=== PATIENT | female | born 1945 | race Caucasian/White ===

== ENCOUNTER → 2020-08-27 18:33 | Outpatient (CLI) | payer MEDICARE, OTHER | END | disposition home or self-care (01) | LOC: D.LABREF 18:33 | PROVIDERS: ATTEND Orthopaedic Surgery | DX: M17.12 Unilateral primary osteoarthritis, left knee (principal) ==

== ENCOUNTER 2020-11-06 05:12 | Inpatient (IN) | payer MEDICARE, OTHER ==
[2020-10-31 09:12] LABS: EOSINOPHILS 2.2 % (0-7); HEMATOCRIT 40.3 % (36.0-48.0); LYMPHOCYTES 24.7 % (15-50); MCH 24.6 pg (26.0-34.0); MCHC 32.3 g/dL (31.0-37.0); MCV 76.2 fL (80.0-100.0); MEAN PLATELET VOLUME 7.1 fL (7.4-10.4); MONOCYTES 10.6 % (2-11); NEUTROPHILS 61.5 % (40-80); PLATELET COUNT 294 10x3/uL (130-400); RBC 5.28 10x6/uL (4.00-5.40); WBC 4.6 10x3/uL (4.8-10.8)
[2020-10-31 09:22] LABS: INR 0.99 (0.85-1.17); PROTIME 12.1 SECONDS (11.6-15.0)
[2020-10-31 09:23] LABS: APTT 28.5 SECONDS (22.8-39.4)
[2020-10-31 09:24] LABS: CALC OSMOLALITY 278 mosm/kg (275-300); CHLORIDE - SERUM 104 mmol/L (98-107); CREATININE - SERUM 0.7 mg/dL (0.6-1.3); GLUCOSE 92 mg/dL (74-106); POTASSIUM - SERUM 3.7 mmol/L (3.5-5.1); SODIUM 141 mmol/L (136-145); UREA NITROGEN 8 mg/dL (7-18); eGFR NON AFRICAN AMERICAN 87 mL/min (90-120)
[2020-10-31 09:42] LABS: BILIRUBIN NEGATIVE (NEGATIVE); KETONE NEGATIVE mg/dL (< 1+); NITRITE NEGATIVE (NEGATIVE); PH 6.5 (5.0-8.0); SQUAMOUS EPITHELIAL <1 HPF (0-4); UROBILINOGEN NORMAL mg/dL (< 2); WHITE CELLS - URINE <1 HPF (0-4)
[~2020-11-06] VITALS: Ht 154.9 cm; Wt 58.2 kg
[~2020-11-06 05:12] MED LIST: ACETAMINOPHEN325 MG PO; COZAAR25 MG PO; FOLIC ACID0.8 MG PO; HYDROCODONE-AC1 EAC2 PO; NAPROXEN250 MG PO; PRENAVITE1 TAB PO; PROBIOTIC1 EAC1 PO; VITAMIN B-122500 MCG PO; VITAMIN D325 MC1 PO
[2020-11-06] MEDS ORDERED: VENTOLIN HFA [SP8 GM INH (06:13)
[2020-11-06 06:16] VITALS: BP 150/64; BMI 22.9
--- NOTE | 2020-11-06 07:37 | NUR ---
HIBACLENS AND ALCOHOL USED TO CLEAN BEFORE PREPPING. STERILE GOWNED AND GLOVED TO PREP WITH CHLORAPREP TIMES TWO. TRAFFIC KEPT TO A MINIMUM.
[2020-11-06 10:05] VITALS: BP 106/63
--- NOTE | 2020-11-06 10:06 | NUR ---
RECEIVED TO ROOM 2230 VIA BED FROM PACU. A/O X3. BP HIGH TEENS. WILL MONITOR. DRESSING TO LEFT KNEE DRY AND INTACT. DENIES NEEDS.
[2020-11-06 10:10] VITALS: BP 106/63; Ht 154.9 cm; Wt 58.2 kg
--- NOTE | 2020-11-06 11:00 | NUR ---
BP IS STEADY BUT LOW. WILL CONTINUE TO MONITOR.
--- NOTE | 2020-11-06 12:30 | NUR ---
BP IS 80/48. 500cc BOLUS INTIATED. SPOKE WITH DR. BARRERA RE SAME. WILL CONTINUE TO MONITOR.
--- NOTE | 2020-11-06 13:45 | NUR ---
LUNCH SERVED IN ROOM. BP IS UP IN THE HIGH TEENS SYSTOLIC. SITTING UP TO EAT SOME LUNCH. WILL CONTINUE TO MONITOR.
--- NOTE | 2020-11-06 16:20 | MORECARE ---
CASE MANAGEMENT DISCHARGE SUMMARY PATIENT: MAYA MARRERO UNIT: [id number] ADM DATE: 11/06/20 AGE: 75 : 46 SEX: F ROOM/BED: D.2230 AUTHOR: ANDRIA,DOC PHYSICIAN: REFERRING PHYSICIAN: JONAS BETH DO DATE OF SERVICE: 11/06/20 Case Management Discharge Planning Summary COMMENTS ENTERED DATE: 11/06/20 16:08 CT COMMENT TYPE: Discharge Planning REVIEWER: Jessie Bianchi CM met with patient at bedside after obtaining verbal consent. CM discussed availability / needs of home health, REHAB and medical equipment. Patient has CPM and walker by [employer]. Patient would also like a bedside commode. Patient plans to do out patient physical therapy and will tell me name of facility tomorrow. Barbosa served and copy on chart. CM to follow and assist as needed. DCP REVIEW SUMMARY ANTICIPATED D/C DATE: EXPECTED LOS : CASE STATUS: DCP Initiated INITIAL REVIEW: 11/06/2020 INITIAL REVIEWER: Jessie Bianchi FINAL DISCHARGE DISPOSITION: : FINAL REVIEWER: FINAL REVIEW DATE: DCP Focus Questions & Answers QUESTION: ANSWER : PATIENT: MAYA MARRERO ENCOUNTER: [id number] MEDICAL RECORD#: [id number] ADMISSION DATE: 11/06/2020 DISCHARGE DATE: ATTENDING MD: JONAS BRADY : AGE: 75 MARITAL STATUS: W DC PLAN ID: [id number] FACILITY: [facility] PRINTED ON: 11/06/20 16:20 CT All edits/amendments must be made on the electronic document DICTATION DATE: 11/06/201619 PHOTOGRAPH TINTER: DM 11/06/20 162 RPT#: [id number] DC DATE: STATUS: ADM IN [facility] [address] [place] [address] END OF REPORT
[2020-11-06 19:55] VITALS: BP 111/52
--- NOTE | 2020-11-06 21:00 | NUR ---
PT TAKEN OFF CPM AT THIS TIME. AMBULATED TO BATHROOM WITH WALKER WITH MINIMAL ASSIST. PT THEN AMBULATED TO SINK AND WASHED HANDS AND BRUSHED TEETH. PT THEN ASSISTED BACK TO BED. SCDS AND MICHELINE HOSE ON BILAT. APPLIED ICE PACK TO LEFT KNEE. PT STATES PAIN 7/10 AT THIS TIME. NORCO GIVEN FOR PAIN. DENIES OTHER NEEDS AT THIS TIME. CL IN REACH
--- NOTE | 2020-11-07 00:15 | NUR ---
PT STATES PAIN 8/10 AT THIS TIME. STATES HER LEG IS GETTING ACHY NOW SHE HAS BEEN LYING STILL A FEW HOUSE. PT ASSISTED TO BATHROOM AND BACK TO BED. GAVE DILAUDID ORDERED. ICE PACK APPLIED TO KNEE. DENIES OTHER NEEDS. CL IN REACH
[2020-11-07 00:16] VITALS: BP 112/61
[2020-11-07 05:37] VITALS: BP 106/52
[2020-11-07 07:18] LABS: BASOPHILS 0.2 % (0-2); EOSINOPHILS 0.4 % (0-7); HEMATOCRIT 31.3 % (36.0-48.0); LYMPHOCYTES 6.4 % (15-50); MCH 24.3 pg (26.0-34.0); MCHC 31.9 g/dL (31.0-37.0); MCV 76.2 fL (80.0-100.0); MEAN PLATELET VOLUME 7.3 fL (7.4-10.4); MONOCYTES 9.2 % (2-11); NEUTROPHILS 83.8 % (40-80); RBC 4.11 10x6/uL (4.00-5.40); RDW 15.5 % (11.5-14.5); WBC 7.3 10x3/uL (4.8-10.8)
[2020-11-07 07:37] LABS: PLATELET COUNT 226 10x3/uL (130-400)
[2020-11-07 07:40] LABS: ANION GAP 9.1 mmol/L (8-16); BILIRUBIN - TOTAL 0.32 mg/dL (0.2-1.3); CALCIUM 7.7 mg/dL (8.5-10.1); CARBON DIOXIDE 28.6 mmol/L (21.0-32.0); CREATININE - SERUM 0.8 mg/dL (0.6-1.3); POTASSIUM - SERUM 3.7 mmol/L (3.5-5.1); PROTEIN - SERUM 5.3 g/dL (6.4-8.2)
--- NOTE | 2020-11-07 08:02 | OP ---
PATIENT NAME: MAYA MARRERO MEDICAL RECORD: [id number] :47 LOCATION:D D.2230 ADMISSION DATE:11/06/20 SURGEON: ALAN BETH DO DATE OF OPERATION: 11/06/2020 PROCEDURE PERFORMED: Left total knee arthroplasty. PREOPERATIVE DIAGNOSIS: Left knee osteoarthritis. POSTOPERATIVE DIAGNOSIS: Left knee osteoarthritis. INDICATIONS: Ms. Marrero is a 75-year-old female who has had left knee pain for quite some time, had varus deformity. She has tried all manner of nonoperative treatment including injections. She has gotten to a point where it is affecting her activities of daily living, could not tolerate any longer and wanted something done surgically. She is aware of the risks including infection, bleeding, damage to nerves or vessels, need for further surgery, fracture, failure of implants, blood clots and even and she signed the consent. SURGEON: Alan Beth DO DESCRIPTION OF PROCEDURE: The patient was given a spinal block by anesthesia in preoperative area and taken to the operative suite, laid in supine position, given light sedation, given 2 grams of Ancef, 80 mg of gentamicin and a gram of TXA. The left lower extremity was then prepped and draped in sterile fashion. Timeout was performed. Everyone was in agreeance with the correct site, side, patient and procedure. I then marked out the incision, covered in Ioban. I used 10 blade scalpel, made careful dissection down to the capsule through the skin and used a fresh 10 blade did a medial parapatellar approach. Any bleeding was coagulated with Aquamantys. I then brought the knee in extension, exposed the patella, removed part of the fat pad, milled the patella down, drilled for a 29 patella. I then exposed the femur and removed the ACL and drilled into the femoral canal and used intramedullary guide to cut the distal femur. Once that was cut, I removed the guide and exposed the proximal tibia. I cut the proximal tibia for an extramedullary guide and removed that bone. I then brought the knee into extension and removed menisci and did an extension block, fit well after I released the MCL with a Grover. I then removed the pins from the tibia and brought the knee in flexion, sized the femur to be an 8, put the airline pilot holes in the cutting block, then malleted on the 4-in-1 cutting block. I used the missy wing to make sure there was no notching. I then cut the 4-in-1 cutting block, I removed the bone. I then exposed the tibia and sized it to be F, pinned into place and put on the femoral trial and put a 10 poly in between, it fit very well and had good stability in varus and valgus stress, in flexion, extension and mid flexion. I then drilled the lug holes on the femur, removed the femoral trial and a poly trial and then reamed and punched on the tibia. I then put extra holes in the tibia for the cement preparation. I then irrigated out the tibia and mixed the cement. While the cement was mixing, then put cement in the tibia and on the implant and impacted the tibia, removed the excess cement. I then impacted on the femur, it was an 8 narrow and then put in the trial poly and brought the knee into extension. I then put in 10% povidone iodine and 500 mL of normal saline solution, cleaned off the patella and put in cement on the patella and on the implant, squeezed it into place, removed the excess cement from it. I then injected the joint cocktail around the femur and then in the joint while I was awaiting for the cement to dry. Once the cement dried, I trialled the 10, 10 fit well and then put in a 10 medial congruent OPERATIVE REPORT [id number] MAYA MARRERO MR bearing poly. I then squeezed it into place. I then put in the Marisol and vancomycin and tobramycin powder after irrigating and then closed the capsule with #1 Vicryl in a [id number]-[id number] fashion and Juan Carlos Covington, certified surgical oceanographer assistant ran Stratafix over that on the capsule and closed the skin with 2-0 Vicryl in inverted interrupted fashion and put on the ZipLine, Adaptic, 4 x 4s, ABD, Webril, Aung wrap and MICHELINE hose stockings. She was awakened and taken to recovery in stable condition, given another gram of TXA. Blood loss was approximately 200 mL. COMPLICATIONS: None. TRANSINT:[id number] Voice Confirmation ID: [id number] DOCUMENT ID: [id number] ALAN BETH DO at 0802 CC: [id number] DICTATION DATE: 11/06/20 1150 BUILDING CARPENTER HELPER: 11/06/20 1504 ADM [facility] [address] [facility] [place], [facility]
--- NOTE | 2020-11-07 09:24 | NUR ---
REHAB PRESCREEN RECEIVED. CURRENTLY THE PATIENTS THERAPY EVALS ARE PENDING. I WILL LOOK BACK AT HER CHART LATER TODAY. THANK YOU FOR THIS REFERRAL. MICHELLE FAIR RN CLINICAL LIAISON, INPATIENT REHAB.
[2020-11-07 09:38] VITALS: BP 121/52
[2020-11-07 13:27] VITALS: BP 135/56
[2020-11-07 17:23] VITALS: BP 131/65
[2020-11-07 20:08] VITALS: BP 133/76
--- NOTE | 2020-11-07 20:30 | NUR ---
PT TAKEN OFF CPM AT THIS TIME. ASSIST PT WITH WALKER TO BATHROOM AND BACK TO BED. DENIES PAIN OR NEEDS AT THIS TIME. CL IN REACH
[2020-11-08 04:43] VITALS: BP 187/74
[2020-11-08 06:17] LABS: BASOPHILS 0.2 % (0-2); EOSINOPHILS 0 % (0-7); HEMATOCRIT 34.1 % (36.0-48.0); HEMOGLOBIN 10.9 g/dL (12-16); LYMPHOCYTES 4.7 % (15-50); MCH 23.8 pg (26.0-34.0); MCHC 31.9 g/dL (31.0-37.0); MCV 74.5 fL (80.0-100.0); MEAN PLATELET VOLUME 7.8 fL (7.4-10.4); MONOCYTES 10.7 % (2-11); NEUTROPHILS 84.4 % (40-80); PLATELET COUNT 260 10x3/uL (130-400); RBC 4.58 10x6/uL (4.00-5.40); RDW 15.4 % (11.5-14.5)
[2020-11-08 06:30] LABS: WBC 12.1 10x3/uL (4.8-10.8)
[2020-11-08 06:40] LABS: ALBUMIN 3.3 g/dL (3.4-5.0); ALKALINE PHOSPHATASE 83 U/L (30-120); ALT (SGPT) 19 U/L (10-68); BILIRUBIN - TOTAL 0.48 mg/dL (0.2-1.3); CALC OSMOLALITY 255 mosm/kg (275-300); CALCIUM 8.3 mg/dL (8.5-10.1); CARBON DIOXIDE 28.9 mmol/L (21.0-32.0); CHLORIDE - SERUM 90 mmol/L (98-107); CREATININE - SERUM 0.7 mg/dL (0.6-1.3); GLUCOSE 93 mg/dL (74-106); POTASSIUM - SERUM 3.9 mmol/L (3.5-5.1); SODIUM 128 mmol/L (136-145); UREA NITROGEN 9 mg/dL (7-18); eGFR NON AFRICAN AMERICAN 87 mL/min (90-120)
[2020-11-08] MEDS ORDERED: ELIQUIS2.5 MG PO (08:13)
[2020-11-08] MEDS ORDERED: HYDROCODON-ACE1 EA10 PO (08:13)
[2020-11-08 08:40] VITALS: BP 173/82
--- NOTE | 2020-11-08 09:21 | MORECARE ---
CASE MANAGEMENT DISCHARGE SUMMARY PATIENT: MAYA MARRERO UNIT: [id number] ADM DATE: 11/07/20 AGE: 75 : 46 SEX: F ROOM/BED: D.2230 AUTHOR: ANDRIA,DOC PHYSICIAN: REFERRING PHYSICIAN: JONAS BETH DO DATE OF SERVICE: 11/08/20 Case Management Discharge Planning Summary COMMENTS ENTERED DATE: 11/06/20 16:08 CT COMMENT TYPE: Discharge Planning REVIEWER: Jessie Bianchi CM met with patient at bedside after obtaining verbal consent. CM discussed availability / needs of home health, REHAB and medical equipment. Patient has CPM and walker by [employer]. Patient would also like a bedside commode. Patient plans to do out patient physical therapy and will tell me name of facility tomorrow. Barbosa served and copy on chart. CM to follow and assist as needed. DCP REVIEW SUMMARY ANTICIPATED D/C DATE: EXPECTED LOS : CASE STATUS: DCP Initiated INITIAL REVIEW: 11/06/2020 INITIAL REVIEWER: Jessie Bianchi FINAL DISCHARGE DISPOSITION: : FINAL REVIEWER: FINAL REVIEW DATE: DCP [facility] Questions & Answers QUESTION: ANSWER : PATIENT: MAYA MARRERO ENCOUNTER: [id number] MEDICAL RECORD#: [id number] ADMISSION DATE: 11/07/2020 DISCHARGE DATE: ATTENDING MD: JONAS BRADY : AGE: 75 MARITAL STATUS: W DC PLAN ID: [id number] FACILITY: [facility] PRINTED ON: 11/08/20 9:21 CT All edits/amendments must be made on the electronic document DICTATION DATE: 11/08/20920 SUBSTATION OPERATOR: DM 11/08/20920 RPT#: [id number] DC DATE: STATUS: ADM IN [facility] [address] [place] [address] END OF REPORT
--- NOTE | 2020-11-08 10:40 | NUR ---
DRESSING CHANGE PER DR BETH. PT GETTTING READY TO PACK UP AND LEAVE. CL IN REACH. STATES PAIN IS FINE AT THIS TIME. WCTM
--- NOTE | 2020-11-08 11:52 | NUR ---
IV THERAPY REMOVED WITH TIP INTACT. DISCHARGE INSTRUCTIONS GIVEN. PT VERBALIZED UNDERSTANDING. PT TAKEN DOWNSTAIR TO FRIEND IN A BLACK SUBARU WITH WALKER AND BSC.
--- NOTE | 2020-11-09 16:33 | MORECARE ---
CASE MANAGEMENT DISCHARGE SUMMARY PATIENT: MAYA MARRERO UNIT: [id number] ADM DATE: 11/07/20 AGE: 75 : 47 SEX: F ROOM/BED: D.2230 AUTHOR: ANDRIA,DOC PHYSICIAN: REFERRING PHYSICIAN: JONAS BETH DO DATE OF SERVICE: 11/09/20 Case Management Discharge Planning Summary COMMENTS ENTERED DATE: 11/06/20 16:08 CT COMMENT TYPE: Discharge Planning REVIEWER: Jessie Bianchi CM met with patient at bedside after obtaining verbal consent. CM discussed availability / needs of home health, REHAB and medical equipment. Patient has CPM and walker by [facility]. Patient would also like a bedside commode. Patient plans to do out patient physical therapy and will tell me name of facility tomorrow. Barbosa served and copy on chart. CM to follow and assist as needed. DCP REVIEW SUMMARY ANTICIPATED D/C DATE: EXPECTED LOS : CASE STATUS: DCP Initiated INITIAL REVIEW: 11/06/2020 INITIAL REVIEWER: Jessie Bianchi FINAL DISCHARGE DISPOSITION: : FINAL REVIEWER: FINAL REVIEW DATE: DCP Focus Questions & Answers QUESTION: ANSWER : PATIENT: MAYA MARRERO ENCOUNTER: [id number] MEDICAL RECORD#: [id number] ADMISSION DATE: 11/07/2020 DISCHARGE DATE: 11/08/2020 ATTENDING MD: JONAS BRADY : AGE: 75 MARITAL STATUS: W DC PLAN ID: [id number] FACILITY: [facility] PRINTED ON: 11/09/20 16:33 CT All edits/amendments must be made on the electronic document DICTATION DATE: 11/09/20 163 PRACTICE CLINICIAN: AILEEN 11/09/20 1633 RPT#: [id number] DC DATE:11/08/20 STATUS: DIS IN [facility] [address] [place] [address] END OF REPORT
== END 2020-11-08 11:53 | disposition home or self-care (01) | DRG 470 ==
LOC: D.OPS 05:12 → EDSTATUS 07:00 → D.OPS 07:00 → D.MS 09:39 → D.OPS 13:26 → D.MS 13:27 → OBSVTIME 13:28 → D.MS 11-07 16:17
PROVIDERS: Family Medicine; ADMIT Orthopaedic Surgery; ATTEND Orthopaedic Surgery
PROC: 0SRD0J9 Replacement of Left Knee Joint with Synthetic Substitute, Cemented, Open Approach (ICD-10-PCS; principal; 2020-11-06 07:15)
DX: M17.12 Unilateral primary osteoarthritis, left knee (principal); Z72.0 Tobacco use; K52.831 Collagenous colitis; J42 Unspecified chronic bronchitis; I10 Essential (primary) hypertension; M54.9 Dorsalgia, unspecified; G89.29 Other chronic pain